=== PATIENT | male | born 1990 ===

== ENCOUNTER 2022-03-22 20:03 | Emergency (ER) | payer OTHER ==
[~2022-03-22] VITALS: Ht 165.1 cm; Wt 59.0 kg
== END 2022-03-22 21:11 | disposition home or self-care (01) ==
LOC: ER 20:03
DX: S90.852A Superficial foreign body, left foot, initial encounter (principal); X58.XXXA Exposure to other specified factors, initial encounter; Y93.9 Activity, unspecified; Y92.9 Unspecified place or not applicable